=== PATIENT | male | born 1965 | race Caucasian/White ===

== ENCOUNTER 2019-03-17 09:19 | Inpatient (IN) ==
[2019-03-17] MEDS ORDERED: NS 500 ML IV PRN (09:28)
--- NOTE | 2019-03-17 09:49 | Diag Imaging Result Doc PS360 ---
EXAM: CHEST-PORTABLE HISTORY: cva TECHNIQUE: Chest single view COMPARISON: None. FINDINGS: The lungs are well expanded. The heart is not enlarged. The vessels are not distended. There are no infiltrates. No effusion identified. Prior surgery to the lower neck. IMPRESSION: Negative exam. Electronically signed by Omar Clarke 03/17/2019 9:46 AM
--- NOTE | 2019-03-17 09:55 | Diag Imaging Result Doc PS360 ---
EXAM: CT HEAD W/O CONTRAST HISTORY: cva TECHNIQUE: CT head without contrast COMPARISON: None. FINDINGS: No parenchymal hemorrhage. No epidural or subdural hematoma. No subarachnoid hemorrhage. No mass identified on this noncontrasted exam. No hydrocephalus. No sinus opacification. IMPRESSION: No hemorrhage. Negative brain CT without contrast. This exam was performed using automated exposure control, adjustment of mA or kV according to patient size, and/or use of iterative reconstruction technique. Electronically signed by Omar Clarke 03/17/2019 9:53 AM
[2019-03-17 10:13] LABS: BASO# 0.02 X1000 (0.0-0.2); BASO% 0.4 % (0.0-0.8); EOS# 0.05 X1000 (0.0-0.7); EOS% 1.1 % (0.0-10.0); HEMATOCRIT 46.4 % (42.0-52.0); HEMOGLOBIN 15.6 g/dL (14.0-18.0); IMM GRAN# 0.01 X1000 (0.0-0.04); IMM GRAN% 0.2 % (0.0-0.5); LYMPH# 1.01 X1000 (1.2-3.4); LYMPH% 22.4 % (20.5-51.1); MCH 28.8 PG (27-31); MCHC 33.6 g/dL (33-37); MCV 85.6 FL (81-99); MONO# 0.37 X1000 (0.11-0.59); MONO% 8.2 % (1.7-9.3); MPV 11.3 FL (7.4-10.4); NEUT# 3.05 X1000 (1.4-6.5); NEUT% 67.7 % (42.2-75.2); PLT 148 X1000 (130-400); RBC 5.42 XMIL (4.7-6.1); RDW 13.1 % (11.5-14.5); WBC 4.51 X1000 (4.8-10.8)
[2019-03-17 10:30] LABS: AGAP 10; ALBUMIN 4.3 g/dL (3.5-5.0); ALKALINE PHOSPHATASE 94 U/L (32-122); BUN 12 mg/dL (8-22); CALCIUM 8.5 mg/dL (8.8-10.2); CHLORIDE 104 mmol/L (98-107); COSMO 283; CREATININE 0.8 mg/dL (0.7-1.2); ESTIMATED GFR > 60; GLUCOSE 163 mg/dL (70-104); GOT 17 U/L (10-34); GPT 17 U/L (10-44); INR 0.92; POTASSIUM 4.4 mmol/L (3.5-5.1); PROTIME 12.8 Seconds (11.0-16.0); SODIUM 140 mmol/L (136-145); TCO2 26 mmol/L (25-35); TOTAL PROTEIN 6.9 g/dL (6.3-8.3)
[2019-03-17 10:31] LABS: PTT 29.4 Seconds (22.3-41.8)
--- NOTE | 2019-03-17 10:36 | PROVIDER DOCUMENTATION ---
This chart was entered by Mari Corona Scribe, acting as scribe for Val Conway MD. HPI-Neurological Disorder - General Chief Complaint: Stroke-Like Symptoms Stated Complaint: STROKE SX Time Seen by Provider: 03/17/19 09:43 Source: patient Allergies/Adverse Reactions: Patient Allergies Allergy/AdvReac Type Severity Reaction Status Date / Time No Known Allergies Allergy Verified 03/17/19 10:00 - History of Present Illness-Neuro Nature of Presenting Problem: Patient is a 53 year old male who presents with stroke like symptoms. States having numbness and tingling to left side of body last night. Reports symptoms have resolved. Denies headache. Severity: reports: mild Onset/Duration: reports: last night Timing: reports: gone now Context: reports: other (numbness and tingling) Character of Deficits: reports: altered sensation New weakness or altered sensation location:: reports: LUE, LLE, left facial Cognitive Baseline: alert, oriented x3 Gait Baseline: walks without assistance Associated Symptoms: reports: denies symptoms Similar Symptoms Previously?: Yes Recently seen or treated by another doctor?: No Review of Systems - Adult - REVIEW OF SYSTEMS - ADULT Constitutional: reports: no symptoms reported. denies: chills, fever, fatique Eyes: reports: no symptoms reported Ears, Nose, Mouth & Throat: reports: no symptoms reported Cardiovascular: reports: no symptoms reported Respiratory: reports: no symptoms reported Gastrointestinal: reports: no symptoms reported Genitourinary: reports: no symptoms reported Musculoskeletal: reports: see HPI, other (left shoulder pain). denies: back pain, muscle weakness Integumentary: reports: no symptoms reported Neurological: reports: see HPI. denies: headache/migraines, numbness, paresthesia, syncope Psychiatric: reports: no symptoms reported Endocrine: reports: no symptoms reported Hematologic/Lymphatic: reports: no symptoms reported Allergic/Immunologic: reports: no symptoms reported All Other Systems: Reviewed and Negative Past History - Adult - PAST MEDICAL HISTORY-ADULT Review of Records: reports: Old Records Reviewed, Social history reviewed & non- contributory. Major Childhood Illnesses: reports: denies history Cardiovascular: reports: HTN Respiratory: reports: denies history Gastrointestinal: reports: denies history Obstetrical/Gynecological: reports: denies history Genitourinary: reports: denies history Musculoskeletal: reports: denies history Neurological: reports: denies history Endocrine/Immune: reports: denies history Other Conditions: reports: denies history - PRIOR SURGERIES/PROCEDURES Surgical/Procedure History: reports: reviewed, not pertinent - IMMUNIZATION STATUS Childhood Immunizations: See Nurse Assessment Flu Vaccine: See Nurse Assessment - FAMILY HISTORY Family History: reviewed, not pertinent - SOCIAL HISTORY Smoking: denies Substance Use: denies Living Situation: family Physical Exam- Neurological - Physical Exam-Neuro Initial Vital Signs Reviewed: Yes General Appearance: alert, no apparent distress. negative: lethargic Eye Exam: bilateral eye: normal inspection HENMT: moist mucous membranes, normal ENT inspection. negative: angioedema Head Injury: no evidence of injury. negative: active bleeding, ecchymosis, lacerations Respiratory: chest non-tender, lungs clear, normal breath sounds. negative: crackles, rales Cardiovascular: normal peripheral pulses, regular rate, rhythm. negative: tachycardia, systolic murmur Abdominal Exam: normal bowel sounds, non tender, soft. negative: guarding, rebound Extremity: normal range of motion, non-tender, normal inspection. 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 negative: facial droop Motor/Sensory: no motor deficit, no sensory deficit, no pronator drift. negative: sensory deficit Neurologic: grossly normal, no motor/sensory deficits. negative: aphasia, facial droop Integumentary: normal color, normal turgor, warm/dry. negative: diaphoresis, pallor, rash Psych/Mental Status: normal mood/affect, oriented x 3. negative: anxious Progress - PLAN OF CARE/RESULTS Progress/Plan/Lab Results: Vital Signs - 8 hr 03/17/19 09:23 Temperature 98 F Pulse Rate 87 Respiratory Rate 18 Blood Pressure 157/94 O2 Sat by Pulse Oximetry 98 Laboratory Results - last 24 hr 03/17/19 03/17/19 03/17/19 09:36 09:59 09:59 WBC 4.51 L RBC 5.42 Hgb 15.6 Hct 46.4 MCV 85.6 MCH 28.8 MCHC 33.6 RDW Std Deviation 13.1 Plt Count 148 MPV 11.3 H Immature Gran % (Auto) 0.2 Neut % (Auto) 67.7 Lymph % (Auto) 22.4 [place] % (Auto) 8.2 Eos % (Auto) 1.1 Baso % (Auto) 0.4 Immature Gran # (Auto) 0.01 Neut # (Auto) 3.05 Lymph # (Auto) 1.01 L [place] # (Auto) 0.37 Eos # (Auto) 0.05 Baso # (Auto) 0.02 PT INR PTT (Actin FS) Sodium Potassium Chloride Carbon Dioxide Anion Gap BUN Creatinine Estimated GFR/1.73 m2 BUN/Creatinine Ratio Glucose POC Glucose 155 H Calculated Osmolality Calcium Total Bilirubin AST ALT Alkaline Phosphatase Troponin T < 0.010 Total Protein Albumin Globulin Albumin/Globulin Ratio 03/17/19 03/17/19 09:59 09:59 WBC RBC Hgb Hct MCV MCH MCHC RDW Std Deviation Plt Count MPV Immature Gran % (Auto) Neut % (Auto) Lymph % (Auto) [place] % (Auto) Eos % (Auto) Baso % (Auto) Immature Gran # (Auto) Neut # (Auto) Lymph # (Auto) [place] # (Auto) Eos # (Auto) Baso # (Auto) PT 12.8 INR 0.92 PTT (Actin FS) 29.4 Sodium 140 Potassium 4.4 Chloride 104 Carbon Dioxide 26 Anion Gap 10 BUN 12 Creatinine 0.8 Estimated GFR/1.73 m2 > 60 BUN/Creatinine Ratio 15 Glucose 163 H POC Glucose Calculated Osmolality 283 Calcium 8.5 L Total Bilirubin 0.40 AST 17 ALT 17 Alkaline Phosphatase 94 Troponin T Total Protein 6.9 Albumin 4.3 Globulin 3.0 Albumin/Globulin Ratio 2.0 Orders Category Date Time Status Cardiac Monitoring DIRECTED Care 03/17/19 09:28 Active Finger Stick Blood Sugar (ED) DIRECTED Care 03/17/19 09:28 Active Misc. NRSG Communication Order DIRECTED Care 03/17/19 09:28 Active Oxygen Therapy- ED Nursing DIRECTED Care 03/17/19 09:28 Active Saline Loc NOW Care 03/17/19 09:28 Active CHEST-PORTABLE [RAD] Stat Exams 03/17/19 09:[address] HEAD W/O CONTRAST [CT] Stat Exams 03/17/19 09:28 Completed CBC WITH ELECTRONIC DIFF [HEME] Stat Lab 03/17/19 09:59 Completed COMPREHENSIVE METABOLIC PANEL [CHEM] Stat Lab 03/17/19 09:59 Completed PROTIME WITH INR [COAG] Stat Lab 03/17/19 09:59 Completed PTT [COAG] Stat Lab 03/17/19 09:59 Completed TROPONIN T Stat Lab 03/17/19 09:[address] W/POSS RFLX CULT [URINALYSIS] Stat Lab 03/17/19 10:01 Received URINE DRUG SCREEN PL Stat Lab 03/17/19 10:01 Received 0.9% Sodium Chloride Inj [Ns] 500 ml Med 03/17/19 09:28 Active IV Wide Open mls/hr Aspirin Med 03/17/19 10:38 Discontinued 325 mg PO NOW ONE EKG [EKG] Stat Ther 03/17/19 09:28 Ordered Result Diagrams: 03/17/19 09:59 03/17/19 09:59 - EKG 1 Time of EKG reading by physician:: 09:35 EKG Read and Signed by:: Val Conway EKG Interpretation (*Must complete 3 of following elements*): Normal Rate: 79 Rhythm: normal sinus rhythm [place]: normal QRS: normal [place] Interval: normal ST Wave: normal Comments: normal ECG - XRAY 1 XRAY Study: Chest Impression: See EMR Report (Signed EXAM: CHEST-PORTABLE HISTORY: cva TECHNIQUE: Chest single view COMPARISON: None. FINDINGS: The lungs are well expanded. The heart is not enlarged. The vessels are not distended. There are no infiltrates. No effusion identified. Prior surgery to the lower neck. IMPRESSION: Negative exam. Electronically signed by Omar Clarke 03/17/2019 9:46 AM 03/17/19 0946 Interpreting Physician: Omar Clarke MD Dictated Date/Time: 03/17/1945 cc: Val Conway MD; Lai Price MD) - CT/MRI 1 CT Study: Head Impression: See EMR Report (EXAM: CT HEAD W/O CONTRAST HISTORY: cva TECHNIQUE: CT head without contrast COMPARISON: None. FINDINGS: No pare nchymal hemorrhage. No epidural or subdural hematoma. No subarachnoid hemorrhage. No mass identified on this noncontrasted exam. No hydrocephalus. No sinus opacification. IMPRESSION: No hemorrhage. Negative brain CT without contrast. This exam was performed using automated exposure control, adjustment of mA or kV according to patient size, and/or use of iterative reconstruction technique. Electronically signed by Omar Clarke 03/17/2019 9:53 AM 03/17/19 0953 Interpreting Physician: Omar Clarke MD Dictated Date/Time: 03/17/19 0952 cc: Val Conway MD; Lai Price MD) - CONSULTS/PCP/HOSPITALIST Notification #1 *Consult/PCP/Hospitalist*: Dr. Johnston Time Discussed: 10:47 Consult Disposition: Will see in ED, Admit Departure - Departure Date of Disposition Decision: 03/17/19 Time of Disposition Decision: 10:35 DIAGNOSIS: TIA (transient ischemic attack) Disposition: ADMITTED INPATIENT 09 Certified Medical Emergency: Emergent Condition: Good Referrals and Follow-Ups: Lai Price MD [Primary Care Provider] - - Critical Care Note This patient required my direct & personal management of CC.: No Attestation - Physician/ ISAI Attestation Patient care was provided by Advanced Practice Provider:: No The physician spent face to face time with patient:: Yes Advanced Practice Provider documentation review:: Supervising physician onsite and consulted in the evaluation and care of this patient. The physician did have a face to face encounter with the patient. - NIH Stroke Scale Level of Consciousness: 0-Alert LOC Questions (ask month and age): 0-Answers Both Correctly LOC Commands (ask to open & close eyes;make a fist, let go): 0-Obeys Both Correctly Best Gaze (horizontal eye movement): 0-Normal Visual (use finger movement, counting or visual threat): 0-No Visual Loss Facial Palsy (show teeth or raise eyebrows & close eyes tght: 0-Symmetrical Movement Motor Function-left arm: 0-Normal Motor Function-right arm: 0-Normal Motor Function-left le-Normal Motor Function-right le-Normal Limb Ataxia(toaaua-ngmo-bxvmwc, or heel to wall): 0-No Ataxia Sensory(pin prick to face,arms,trunk,legs-compare side/side): 0-No Ataxia Best Language(name item/read sentence.Ex-Down to Earth): 0-No Aphasia Dysarthria(Pt read words or say words Ex.Mama,Tip-Top,Thanks: 0-Normal Articulation Extinction and Inattention: 0-Normal NIH Total Score: 0 Stroke tPA Guidelines - Consultation Candidate for:: NOT A CANDIDATE Reason not a candidate:: symptoms have resolved This chart was documented by the indicated scribe, (Mari Corona, Cheli) and a ccurately reflects the services I performed and decisions made by me, Val Conway MD, as attested by the provider's signature.
[2019-03-17] MEDS ORDERED: ASPIRIN PO ONE (10:38)
[2019-03-17 11:00] LABS: BILIRUBIN URINE NEGATIVE (NEGATIVE); BLOOD URINE TRACE (NEGATIVE); CLARITY CLEAR (CLEAR); COLOR YELLOW; KETONE URINE NEGATIVE (NEGATIVE); LEUKOCYTES URINE NEGATIVE (NEGATIVE); NITRITE URINE NEGATIVE (NEGATIVE); PH URINE 6.5; PROTEIN URINE TRACE mg/dL (NEGATIVE); URINE BACTERIA 2+ /HFP; URINE CAST NONE SEEN /LPF; URINE CRYSTAL NONE SEEN /HPF; URINE EPITHELIAL CELLS <10 /HPF (<10); URINE RBC <10 /HPF (<10); URINE SOURCE CLEAN CATCH; URINE WBC <10 /HPF (<10); URINE YEAST NONE SEEN /HPF; UROBILINOGEN URINE NORMAL
[2019-03-17] MEDS ORDERED: NS 1,000 ML IV PRN (11:05)
[2019-03-17] MEDS ORDERED: TYLENOL PO PRN (11:05)
[2019-03-17] MEDS ORDERED: ZOFRAN IV PRN (11:05)
[2019-03-17 11:11] LABS: UR AMPHETAMINES QUAL NONE DETECTED (NONE DETECT); UR BARBITUATES QUAL NONE DETECTED (NONE DETECT); UR BENZODIAZEPIN QUAL NONE DETECTED (NONE DETECT); UR CANNABINOIDS QUAL NONE DETECTED (NONE DETECT); UR COCAINE QUAL NONE DETECTED (NONE DETECT); UR METHADONE QUAL NONE DETECTED (NONE DETECT); UR METHAMPHETAMINE QUAL NONE DETECTED (NONE DETECT); UR OPIATES QUAL NONE DETECTED (NONE DETECT); UR OXYCODONE QUAL NONE DETECTED (NONE DETECT); UR PCP QUAL NONE DETECTED (NONE DETECT); UR PROPOXYPHENE QUAL NONE DETECTED (NONE DETECT); UR TCA QUAL NONE DETECTED (NONE DETECT)
--- NOTE | 2019-03-17 11:15 | EKG Report ---
Test Performed on : 03/17/2019 09:35:00 AM Test Reason : cva Blood Pressure : / mmHG Vent. Rate : 079 BPM Atrial Rate : 079 BPM P-R Int : 124 ms QRS Dur : 090 ms QT Int : 366 ms P-R-T Axes : 043 061 038 degrees QTc Int : 419 ms Normal sinus rhythm. Normal ECG No previous ECGs available Unconfirmed Result
[2019-03-17 11:34] LABS: HEMOGLOBIN A1C 6.7 % (4.8-6.0)
[2019-03-17 11:44] LABS: FREE T4 1.01 ng/dL (0.93-1.70); TSH 0.38 uIUmL (0.27-4.20)
--- NOTE | 2019-03-17 12:26 | Diag Imaging Result Doc PS360 ---
MRA BRAIN W/O CONTRAST - 03/17/2019 INDICATION: cva symptoms TECHNIQUE: Noncontrast [id number]-[id number]-[id number] technique was used COMPARISON: None FINDINGS: The cerebral arteries are all normal. No aneurysm or stenosis. There is definitely a patent anterior communicating and left posterior communicating artery. IMPRESSION: Negative exam. Electronically signed by Latrell Griffin 03/17/2019 12:23 PM
--- NOTE | 2019-03-17 12:37 | Diag Imaging Result Doc PS360 ---
MRI BRAIN W/WO CONTRAST - 03/17/2019 INDICATION: cva symptoms COMPARISON: None FINDINGS: There is no area of restricted diffusion. The ventricles and sulci are normal in size and contour. No intracranial mass or hemorrhage. No area of abnormal contrast enhancement. Midline structures including the optic chiasm and pituitary are normal. IMPRESSION: Negative exam. Electronically signed by Latrell Griffin 03/17/2019 12:35 PM
--- NOTE | 2019-03-17 14:25 | HISTORY AND PHYSICAL ---
PRIMARY CARE PROVIDER: Dr. Lai Price. CHIEF COMPLAINT: Left-sided weakness, numbness, and tingling, and left upper and lower lip tingling. HISTORY OF PRESENT ILLNESS: Mr. Scar Kidd is a 53-year-old male with a medical history of hypertension, chronic left hand numbness secondary to cervical postop complications and preop complications from surgery in the past, who states that he went to the grocery store yesterday at about 5 p.m. He noticed a left sharp shoulder pain that he had developed. It was very short-lived. He went home, was on the couch watching TV, and noticed that he started having some left upper and lower lip numbness, and then he also noticed that it was in the left arm, hand, left leg and foot. When he attempted to walk, he felt drunk, and it only lasted for about 10 minutes. He presented here at 10 a.m. due to the fact that this morning when he was talking to a friend, the numbness and tingling came back to the left upper and lower lip. Also, his left eye felt funny, as if it was twitching. Those symptoms also resolved. He had a head CT that was negative. He has had a brain MRI and MRA that are negative. He does admit to having moved and lifted and used heavy items over the last 3 days, and even states that 2 weeks ago, he felt burning along the left side of his arm, but otherwise no other complaints. He does not have any chest pain, no shortness of breath, no fever. Denies any double vision or blurry vision, other than the usual poor vision that he has. He is equal in strength at this time. Only has the tingly numbness in his left hand, which is his usual chronic sensation, and so will continue with possible TIA workup, but will also get imaging of the cervical spine as well to fully evaluate if there has been any injury that he has sustained over the last 3 days. PAST MEDICAL HISTORY: 1. Hypertension. 2. Left hand chronic numbness. 3. Chronic back pain. 4. New diagnosis of diabetes mellitus type 2. PAST SURGICAL HISTORY: 1. He has had four lower back surgeries. 2. Anterior cervical fusion. SOCIAL HISTORY: Denies tobacco, alcohol, or illicit drug use. He is disabled and does not work. FAMILY HISTORY: Mother at 52 from colon cancer. Father of severe congestive heart failure, enlarged heart at 49. He also had hypertension, diabetes. His grandfather of stroke. ALLERGIES: No known drug allergies. HOME MEDICATIONS: Losartan 100 mg p.o. daily, Nucynta 50 mg p.o. t.i.d. REVIEW OF SYSTEMS: A 14-point review of systems was complete, and all were negative, except for those mentioned in the above HPI. PHYSICAL EXAMINATION: VITAL SIGNS: Temperature 98 degrees, heart rate 79, respiratory rate 18, blood pressure 133/98, O2 saturation 100% on room air. He is 5 feet 8 inches tall, 223 pounds, BMI 33.9. GENERAL: Mr. Scar Kidd is a 53-year-old male. He is in no acute distress. He is able answer questions appropriately. HEENT: Atraumatic, normocephalic. Pupils equal, round, reactive to light. Extraocular movements intact. Mucous membranes are moist. NECK: Trachea midline. CARDIOVASCULAR: S1, S2. Regular rate and rhythm. No rubs, gallops, murmurs. No lower extremity edema. There are +2 dorsalis and radial pulses. Negative JVD or carotid bruits. PULMONARY: Clear to auscultation. Bilateral breath sounds. No accessory muscle use or work of breathing noted. GASTROINTESTINAL: Soft, nontender, nondistended. Positive bowel sounds x4. EXTREMITIES: Moves all extremities equally. Full range of motion. NEUROLOGIC: A and O x3. Follows commands. Sensory is intact, except for the left hand. He has got numbness and tingling. SKIN: Warm, dry, intact. LABORATORY DATA: White blood cells 4000, hemoglobin 15, hematocrit 46, platelet count 148,000. INR 0.92, PTT 29.4. Sodium 140, potassium 4.4, BUN 12, creatinine 0.8, glucose 163. Hemoglobin A1c is 6.7. Calcium 8.5, bilirubin 0.40, AST 17, ALT 17. Troponin less than 0.01. Albumin 4.3. Triglycerides 139, total cholesterol 172, LDL is 137, HDL 35. TSH 0.38, free T4 is 1.01. Protein trace in the urine, 1+ glucose in the urine. Urine drug screen negative. IMAGING: Chest x-ray: Negative exam. Head CT negative. Brain MRA also negative exam. Brain MRI also a negative exam. He had an EKG, which showed normal sinus rhythm, rate 79, QTc is 419. ASSESSMENT AND PLAN: 1. Transient ischemic attack symptoms of left-sided weakness with numbness, tingling, and left facial numbness and tingling that has been intermittent at two separate times, once yesterday and once today. Yesterday, he had some ataxia with a drunken sensation that lasted for about 10 minutes, which resolved. Head CT and brain MRI were all negative for any acute stroke. We still need to get a carotid ultrasound and echocardiogram. His cholesterol panel is okay. His hemoglobin A1c is elevated with elevation in his blood glucose levels, which could be indicative of diabetes, and really there is concern that it may be more of a cervical spine issue, so will get a cervical thoracic spine CT. In question, it is possible that there could be a cerebellar-type injury, but it is not permanent as the symptoms resolved. If so, there may be a need for more of a neck MRI as well. 2. Chronic back pain with chronic left hand numbness and tingling, and some acute symptoms of left-sided numbness and tingling, along with weakness and ataxia. We are going to get a cervical and thoracic CT. He is on medication for chronic neck pain. Will continue that. 3. Hypertension. We are going to not continue the Cozaar. We are going to allow for some permissive hypertension for now. 4. Deep venous thrombosis prophylaxis. Will just do sequential compression devices for now. Dictated by EDUAROD Bishop for Marito Johnston MD cc: EDUARDO Bishop MD
--- NOTE | 2019-03-17 15:34 | HISTORY AND PHYSICAL ---
ADDENDUM: ASSESSMENT/PLAN: New diagnosis of diabetes mellitus type 2. We have a hemoglobin A1c of 6.7, blood glucose levels have been 151s to 160s here, will do pattern blood glucoses and sliding scale insulin and he will need diabetic education prior to discharge. Dictated by EDUARDO Bishop for Marito Johnston MD cc: EDUARDO Bishop MD
--- NOTE | 2019-03-17 15:36 | Diag Imaging Result Doc PS360 ---
EXAM: CT CERVICAL SPINE W/O CONTRAST HISTORY: left hemiparesis/parathesias TECHNIQUE: This exam was performed using automated exposure control, adjustment of mA or kV according to patient size, and/or use of iterative reconstruction technique. COMPARISON: None. FINDINGS: There is no precervical soft tissue swelling. There is prior anterior fusion C5-C7. No evidence for acute fracture or subluxation. There is uncovertebral hypertrophy and posterior disc osteophyte complex producing spinal canal and neural foraminal narrowing at C3/C4, C4/C5, C5/C6, C6/C7. Partial opacification right mastoid air cells, likely chronic. IMPRESSION: Status post anterior fusion with multilevel degenerative arthropathy with spinal canal and neural foraminal stenosis. Electronically signed by Meredith Ko 03/17/2019 3:34 PM
--- NOTE | 2019-03-17 15:41 | Diag Imaging Result Doc PS360 ---
EXAM: CT THORACIC SPINE W/O CONTRAST HISTORY: LEFT HEMIPARESIS, PARATHESIAS TECHNIQUE: This exam was performed using automated exposure control, adjustment of mA or kV according to patient size, and/or use of iterative reconstruction technique. COMPARISON: None. FINDINGS: Alignment is anatomic. No acute fracture. No subluxation. There is degenerative disc disease with vacuum phenomenon T11/12 and T9/T10. No spinal or foraminal stenosis is appreciated. There are calcified hilar and mediastinal lymph nodes compatible with prior granulomatous disease. IMPRESSION: Mild degenerative disc disease thoracic spine. Electronically signed by Meredith Ko 03/17/2019 3:38 PM
[2019-03-17] MEDS ORDERED: HUMULIN R (PARKWAY) SUBQ SCH (16:00)
[2019-03-17 17:02] VITALS: BP 136/81
--- NOTE | 2019-03-17 18:19 | Vascular Study Report ---
Carotid Ultrasound - 03/17/2019 INDICATION: cva symptoms TECHNIQUE: COMPARISON: None FINDINGS: There is normal vascular flow in the carotid and vertebral arteries bilaterally. No evidence of aneurysm or stenosis. No elevated velocities. Maximum velocity on the right side is 87 cm/s. Maximum velocity in the left side is 91 cm/s. This corresponds with 0% stenosis. IMPRESSION: Negative exam. Electronically signed by Latrell Griffin 03/17/2019 6:16 PM
--- NOTE | 2019-03-17 19:23 | HISTORY AND PHYSICAL ---
ADDENDUM REPORT HISTORY AND PHYSICAL: Patient seen and examined by myself. Full note dictated and discussed with nurse practitioner. Patient presented to the hospital with stroke-like symptoms. He has a known history of high blood pressure and has not been compliant with medications. Admit to the hospital and complete stroke workup. cc: Marito Johnston MD
[2019-03-17] MEDS ORDERED: LIPITOR PO SCH (21:00)
[2019-03-18] MEDS ORDERED: ASPIRIN PO SCH (09:00)
--- NOTE | 2019-03-18 09:58 | DISCHARGE SUMMARY ---
ADMISSION DATE: 03/17/2019 DISCHARGE DATE: 03/17/2019 DISCHARGE DIAGNOSES: 1. TIA resolved. 2. Hypertension. The patient has been noncompliant with his blood pressure medications and admits he has not been taking such. 3. Type 2 diabetes with an A1c at 6.7. 4. Chronic back pain. CONSULTATIONS: None. PROCEDURES: 1. MRI and MRA of the brain negative. 2. Cervical CT which demonstrated minimal disease. 3. Carotid ultrasound bilateral, normal. BRIEF HOSPITAL COURSE: The patient is a 53-year-old male who presented to the hospital with stroke-like symptoms with left hand numbness. He notes that all of his symptoms have resolved. He is awake, alert. He is in no distress. After much discussion, patient does admit that he rarely takes his blood pressure medications and has been told in the past that he was prediabetic. Thankfully, all of his symptoms have resolved. He has had a completely negative workup with MRI, MRA, and carotid ultrasound. We, therefore, are going to discharge him home. DISPOSITION: Greater than 30 minutes was spent in total discharge planning. Discussed with patient that he needs to take his blood pressure medication, although at this point, I would take 50 mg of losartan instead of 100 and has not been taking it at all. We are going to add metformin for his diabetes and Lipitor for his TIA. The patient understands that he needs to take all 3 of his medications. He will follow up outpatient with Dr. Price. cc: Marito Johnston MD
--- NOTE | 2019-03-18 17:19 | ECHO REPORT ---
ORDER DATE: 03/17/2019 INTERPRETING PHYSICIAN: Dr. Barrett CLINICAL INDICATIONS: This is a 53-year-old male with TIA, hypertension, and diabetes. M-MODE MEASUREMENTS: Left ventricle end diastole: 5.2 cm. Left ventricle end systole: 3.4 cm. Posterior wall: 1.0 cm. Interventricular septum: 1.0 cm. Left atrium: 3.5 cm. Aortic root: 3.4 cm. SUMMARY OF 2-DIMENSIONAL IMAGIN. The left ventricular chamber appears to be mildly enlarged. Left ventricular systolic function is normal. Ejection fraction is estimated at 60% to 65%. There is no wall motion abnormality noted. The right ventricle appears to be normal. 2. The aortic valve looks normal. Color flow mapping is unremarkable. 3. Mitral valve looks normal. Color flow mapping indicates trivial degree of regurgitation. 4. Pulsed wave Doppler of mitral inflow is normal. 5. Tissue Doppler of septal and lateral mitral annulus averages 11 cm. 6. Pulmonary venous flow is normal. 7. There is no diastolic dysfunction. 8. The tricuspid valve shows mild degree of regurgitation. 9. Pulmonary pressure is estimated at 27 to 32 mmHg. The pulmonic valve is normal. Color flow mapping unremarkable. 10.There is no pericardial effusion, mass, and no thrombus. 11.At the end of the study, agitated saline was injected once and that showed no evidence of patent foramen ovale. CONCLUSIONS: In summary, this echocardiographic study shows: 1. Mildly enlarged left ventricle with normal systolic function, ejection fraction of 60% to 65%. 2. No diastolic dysfunction. 3. Mild degree of mitral and tricuspid regurgitation. 4. No pulmonary hypertension. Clinical correlation is recommended. cc: MD Rula Hogue CRNP
== END 2019-03-17 19:40 | disposition home or self-care (01) | DRG 69 ==
LOC: P.ED 09:19 → P.MEDSURG 12:12
PROVIDERS: ATTEND Family Medicine